=== PATIENT | female | born 1965 | race Caucasian/White ===

== ENCOUNTER 2019-06-29 19:21 | Emergency (ER) | payer OTHER ==
[~2019-06-29] VITALS: Ht 172.7 cm; Wt 63.0 kg
[2019-06-29] MEDS ORDERED: BUSPAR (19:36)
== END 2019-06-29 21:56 | disposition home or self-care (01) ==
LOC: ER 19:21
DX: K29.70 Gastritis, unspecified, without bleeding (principal); R10.13 Epigastric pain